=== PATIENT | female | born 1995 ===

== ENCOUNTER 2016-11-08 18:14 | Emergency (ER) | payer MEDICARE ==
[2016-11-08 18:20] VITALS: BP 123/80; PULSE 89; RESP 18; TEMP 97.9; O2SAT 98
[2016-11-08] MEDS ORDERED: cefTRIAXone (Rocephin) 250 mg Inj IM STA (18:56)
--- NOTE | 2016-11-08 19:00 | C.PDOC ---
History Of Present Illness 21 y/o female presents to ED for evaluation on possible exposure to STD. Patient denies pain, discomfort, fever, chills or any other complaints at this time. Time Seen by Provider: 11/08/16 18:31 Chief Complaint (Nursing): Female Genitourinary History Per: Patient History/Exam Limitations: no limitations Onset/Duration Of Symptoms: Hrs Current Symptoms Are (Timing): Still Present Past Medical History Reviewed: Historical Data, Nursing Documentation, Vital Signs Vital Signs: Last Vital Signs Temp 97.9 F 11/08/16 18:16 Pulse 89 11/08/16 18:16 Resp 18 11/08/16 18:16 BP 123/80 11/08/16 18:16 Pulse Ox 98 11/08/16 19:02 - Medical History PMH: Asthma Surgical History: Tonsillectomy Family History: States: No Known Family Hx - Social History Hx Alcohol Use: No Hx Substance Use: Yes - Immunization History Hx Tetanus Toxoid Vaccination: Yes Hx Influenza Vaccination: No Hx Pneumococcal Vaccination: No Review Of Systems Except As Marked, All Systems Reviewed And Found Negative. Constitutional: Negative for: Fever, Chills Gastrointestinal: Negative for: Nausea, Vomiting, Diarrhea Genitourinary: Negative for: Dysuria, Frequency, Vaginal Discharge, Pelvic Pain Skin: Negative for: Rash Neurological: Negative for: Weakness, Numbness Physical Exam - Physical Exam Appears: Non-toxic, No Acute Distress Skin: Normal Color, Warm Head: Atraumatic, Normacephalic Eye(s): bilateral: Normal Inspection Cardiovascular: Rhythm Regular, No Murmur Respiratory: Normal Breath Sounds, No Rales, No Rhonchi, No Wheezing Gastrointestinal/Abdominal: Soft, No Tenderness, No Guarding, No Rebound Extremity: Normal ROM, Capillary Refill (<2 seconds) Neurological/Psych: Oriented x3, Normal Motor, Normal Sensation Gait: Steady ED Course And Treatment O2 Sat by Pulse Oximetry: 98 (RA) Pulse Ox Interpretation: Normal Medical Decision Making Medical Decision Makin yo F presents to the ER for concern for possible STD exposure. Pt's boyfriend is present with STD symptoms. Patient medicated with rocephin 250 mg IM and zithromax 1 g PO. Urine of chlamydia and gonorrhea sent. Advised to f/u with referral MD in 2 days without fail. Return to the ER at any time for any new or worsening symptoms. Disposition - Disposition Referrals: Merced Pearl MD [Staff Provider] - Disposition: HOME/ ROUTINE Disposition Time: 19:00 Condition: STABLE Instructions: Sexually Transmitted Diseases (ED) Print Language: HUNGARIAN - Clinical Impression Clinical Impression: Concern about sexually transmitted disease in female without diagnosis - PA / [employer] / Resident Statement MD/DO has reviewed & agrees with the documentation as recorded. - Scribe Statement The provider has reviewed the documentation as recorded by the Scribpasha Reynolds All medical record entries made by the Razaibpasha were at my direction and personally dictated by me. I have reviewed the chart and agree that the record accurately reflects my personal performance of the history, physical exam, medical decision making, and the department course for this patient. I have also personally directed, reviewed, and agree with the discharge instructions and disposition.
== END 2016-11-08 19:30 | disposition home or self-care (01) ==
LOC: C.ER 18:14
DX: Z20.2 Contact with and (suspected) exposure to infections with a predominantly sexual mode of transmission (principal)
CPT/HCPCS: 87491; 87591; 96372; 99283; J0696